=== PATIENT | male | born 1975 | race Caucasian/White ===

== ENCOUNTER 2024-04-28 15:38 | Emergency (ER) | payer BC, SELFPAY ==
[2024-04-28] VITALS (9 sets, daily range): BP systolic 108–127; BP diastolic 64–90; PULSE 47–82; RESP 12–24; TEMP 36.4–36.7; O2SAT 93–100; BMI 22.3
--- NOTE | 2024-04-28 15:48 | RAD_ITS ---
STUDY: X-RAY - LEFT SHOULDER REASON FOR EXAM: Male, 49 years old. TRAUMA TECHNIQUE: 2 view(s) of the shoulder. COMPARISON: None. FINDINGS: Anterior inferior humeral head dislocation. Displaced comminuted avulsion fracture greater tuberosity. Normal acromioclavicular joint. Normal acromion. The soft tissue structures are unremarkable. Normal visualized pulmonary apex. RAD/Shoulder min 2 Views IMPRESSION: Fracture dislocation humeral head Electronically Signed: Tristian Lockhart MD at 16:41 EDT ,
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
--- NOTE | 2024-04-28 15:55 | RAD_ITS ---
STUDY: X-RAY CHEST REASON FOR EXAM: Male, 49 years old. TRAUMA TECHNIQUE: Single frontal view of the chest. COMPARISON: None. FINDINGS: Left lower lobe airspace disease. There is no demonstrated pleural abnormality. Normal size heart. Normal mediastinum and sony. Normal visualized pulmonary arteries. Normal visualized aortic arch and descending thoracic aorta. Moderate dextroconvex scoliosis. Normal visualized ribs, clavicles, and shoulders. There is no demonstrated abnormality of the visualized soft tissue structures of the upper abdomen. RAD/Chest 1 View (Portable) IMPRESSION: Left lower lobe airspace disease Electronically Signed: Tristian Lockhart MD at 16:42 EDT ,
[2024-04-28] MEDS: fentaNYL 100 MCG/2 ML Ampul 50 MCG IV (16:17)
[2024-04-28] MEDS: Propofol 200 MG/20 ML Vial IV BOLUS (16:24)
--- NOTE | 2024-04-28 16:30 | RAD_ITS ---
STUDY: X-RAY - LEFT SHOULDER REASON FOR EXAM: Male, 49 years old. reduction TECHNIQUE: 2 view(s) of the shoulder. COMPARISON: None. FINDINGS: Normal glenohumeral articulation. Normal acromioclavicular joint. Normal acromion. Fracture greater tuberosity appears in near anatomic alignment. Normal humeral head and visualized proximal humerus. The soft tissue structures are unremarkable. Normal visualized pulmonary apex. RAD/Shoulder min 2 Views IMPRESSION: Successful reduction and improved alignment greater tuberosity fracture. Electronically Signed: Tristian Lockhart MD at 17:46 EDT ,
[2024-04-28] MEDS: Lidocaine 1% (20 ml mdv) 20 ML Vial INFILT (17:21)
[2024-04-28] MEDS: HYDROcodone Bitartrate/Apap 5/325 Tablet PO (17:31)
== END 2024-04-28 19:02 | disposition home or self-care (01) ==
PROVIDERS: Emergency Provider Emergency Medicine; PCP Internal Medicine; Visit Provider Emergency Medicine
DX: S42.252A Displaced fracture of greater tuberosity of left humerus, initial encounter for closed fracture (principal); S01.112A Laceration without foreign body of left eyelid and periocular area, initial encounter; S50.312A Abrasion of left elbow, initial encounter; V18.4XXA Pedal cycle driver injured in noncollision transport accident in traffic accident, initial encounter; Y92.828 Other wilderness area as the place of occurrence of the external cause
CPT/HCPCS: 23665; 12011; 71045; 73030; 99284; A4216

== ENCOUNTER 2025-11-15 10:51 | Emergency (ER) | payer OTHER, BC, SELFPAY ==
[2025-11-15 10:51] VITALS: BP 135/79; PULSE 69; RESP 16; TEMP 36.8; O2SAT 99; BMI 27.6
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
[2025-11-15 13:03] VITALS: BP 135/79; PULSE 69; RESP 16; TEMP 36.8; O2SAT 99
== END 2025-11-15 13:09 | disposition home or self-care (01) ==
PROVIDERS: Emergency Provider Emergency Medicine; PCP Internal Medicine; Visit Provider Emergency Medicine
DX: S67.190A Crushing injury of right index finger, initial encounter (principal); S60.021A Contusion of right index finger without damage to nail, initial encounter; T23.221A Burn of second degree of single right finger (nail) except thumb, initial encounter; W24.1XXA Contact with transmission devices, not elsewhere classified, initial encounter; Y99.0 Civilian activity done for income or pay
CPT/HCPCS: 73140; 99282